=== PATIENT | male | born 1930 | race Caucasian/White ===

== ENCOUNTER 2020-07-28 21:50 | Emergency (ER) | payer OTHER ==
[2020-07-28 22:26] VITALS: TEMP 98.1; BMI 21.6
[2020-07-28] MEDS ORDERED: LACTATED RINGERS SOLUTION 1000 ML INFUS.BAG IV ONE (22:36)
[2020-07-28 23:42] LABS: BASO % 0.2 % (0-2.0); HEMATOCRIT 43.2 % (35.4-49); HEMOGLOBIN 14.5 GM/dL (11.7-16.9); LYMPH % 21.3 % (8-40); MCH 31.5 pg (25.7-33.7); MCHC 33.5 g/dl (32.0-35.9); MEAN CELL VOLUME 94.1 fl (80-96); MEAN PLT VOLUME 9.5 fl (7.5-11.1); NEUT % 67.5 % (42.8-82.8); RBC 4.59 M/mm3 (4.00-5.60); RDW 14.5 % (11.9-15.9); WHITE BLOOD COUNT 5.8 K/mm3 (4.0-10.0)
[2020-07-28 23:56] LABS: INR 1.4 (0.83-1.09); PROTHROMBIN TIME (PATIENT) 16.8 SEC (9.7-13.0)
[2020-07-28 23:59] LABS: ACTIVATED PTT 43.8 SECONDS (25.2-36.5)
[2020-07-29 00:24] LABS: CHLORIDE 109 mmol/L (98-107); SODIUM 142 mmol/L (136-145)
[2020-07-29 00:27] LABS: ALBUMIN 3.5 g/dl (3.4-5.0); ANION GAP 7 MMOL/L (8-16); CALCIUM 8.7 mg/dL (8.5-10.1); CO2 27 mmol/L (21-32); GLUCOSE,RANDOM 84 mg/dL (74-106); LIPASE 220 U/L (73-393); MAGNESIUM 2.3 mg/dL (1.8-2.4)
[2020-07-29 00:28] LABS: BLOOD UREA NITROGEN 30.8 mg/dL (7-18)
[2020-07-29 00:30] LABS: BILIRUBIN,DIRECT 0.2 mg/dL (0.0-0.2); CREATININE 1.4 mg/dL (0.55-1.3); SGOT/AST 91 U/L (15-37); SGPT/ALT 46 U/L (13-61)
[2020-07-29 00:31] LABS: BILIRUBIN,TOTAL 0.8 mg/dL (0.2-1)
[2020-07-29 00:32] LABS: LDH 463 U/L (87-246)
[2020-07-29 00:33] LABS: ALK PHOS 72 U/L (45-117)
[2020-07-29 01:05] LABS: PLATELET COUNT 114 K/MM3 (134-434)
[2020-07-29 01:37] VITALS: BP 143/99; PULSE 78
== END 2020-07-29 01:38 | disposition home or self-care (01) ==
LOC: JER 21:50
DX: R05 Cough (principal); K59.1 Functional diarrhea; U07.1 COVID-19
CPT/HCPCS: 36415; 71045-TC-FY; 80053; 82248; 82550; 82553; 82728; 83615; 83690; 83735; 84100; 84484; 85025; 85610; 85730; 86140; 93005; 93010; 99285-25